=== PATIENT | male | born 1985 | race Caucasian/White ===

== ENCOUNTER 2017-12-16 14:27 | Emergency (ER) | payer SELFPAY ==
--- NOTE | 2017-12-16 15:10 | EDM.PDOCBH ---
<OfficerFausto - Last Filed: 12/16/17 15:08> ED HPI GENERAL MEDICAL PROBLEM - General Chief Complaint: Drug or Alcohol Abuse Stated Complaint: VOMITING, ALCHOL WITHDRAWAL Time Seen by Provider: 12/16/17 14:59 Source of Information: Reports: Patient, RN Notes Reviewed History Limitations: Reports: Intoxication - History of Present Illness INITIAL COMMENTS - FREE TEXT/NARRATIVE: 32-year-old gentleman presents to the emergency department today requesting treatment at an alcohol facility, he last drank this morning tends to drink whiskey or wine has been to the [facility] 12 times, at this time he states he feels ill but he is going through withdrawal symptoms has had poor oral intake for the last 4 days because of the alcohol consumption Generalized Pain Score (Numeric/FACES): 5 - Related Data Allergies Allergy/AdvReac Type Severity Reaction Status Date / Time No Known Allergies Allergy Verified 12/16/17 14:50 Home Meds: Home Meds NK [No Known Home Meds] 12/16/17 [History] Past Medical History Psychiatric History: Reports: Addiction Social & Family History - Tobacco Use Smoking Status *Q: Heavy Tobacco Smoker Years of Tobacco use: 15 Packs/Tins Daily: 1 - Caffeine Use Caffeine Use: Reports: Soda - Alcohol Use Number of Drinks Per Day: 10 - Recreational Drug Use Recreational Drug Use: No ED ROS GENERAL - Review of Systems Review Of Systems: See Below Constitutional: Reports: No Symptoms HEENT: Reports: No Symptoms Respiratory: Reports: No Symptoms Cardiovascular: Reports: No Symptoms GI/Abdominal: Reports: No Symptoms : Reports: No Symptoms Musculoskeletal: Reports: No Symptoms Skin: Reports: No Symptoms Neurological: Reports: No Symptoms Psychiatric: Reports: Cravings ED EXAM, BEHAVIORAL HEALTH - Physical Exam Exam: See Below Exam Limited By: Intoxication General Appearance: Alert, WD/WN, No Apparent Distress Respiratory/Chest: No Respiratory Distress, Lungs Clear, Normal Breath Sounds, No Accessory Muscle Use Cardiovascular: Regular Rate, Rhythm, No Murmur GI/Abdominal: Soft, Non-Tender COURSE, BEHAVIORAL HEALTH COMP - Course Vital Signs: Last Vital Signs Temp 97.2 F 12/17/17 03:42 Pulse 88 12/17/17 03:42 Resp 15 12/17/17 03:42 BP 122/78 12/17/17 03:42 Pulse Ox 98 12/17/17 03:42 Orders, Labs, Meds: Active Orders 24 hr Category Date Time Status Peripheral IV Care [RC] . DIRECTED Care 12/16/17 16:09 Active Peripheral IV Insertion Adult [OM.PC] Urgent Oth 12/16/17 16:09 Ordered Laboratory Tests 12/16/17 12/16/17 12/16/17 Range/Units 15:07 15:07 15:07 WBC 8.5 (4.5-11.0) K/uL RBC 5.17 (4.30-5.90) M/uL Hgb 17.2 H (12.0-15.0) g/dL Hct 47.3 (40.0-54.0) % MCV 92 (80-98) fL MCH 33 H (27-31) pg MCHC 36 (32-36) % Plt Count 221 (150-400) K/uL Neut % (Auto) 53 (36-66) % Lymph % (Auto) 36 (24-44) % Carter % (Auto) 10 H (2-6) % Eos % (Auto) 1 L (2-4) % Baso % (Auto) 0 (0-1) % Sodium 134 L (140-148) mmol/L Potassium 3.1 L (3.6-5.2) mmol/L Chloride 96 L (100-108) mmol/L Carbon Dioxide 20 L (21-32) mmol/L Anion Gap 21.1 H (5.0-14.0) mmol/L BUN 11 (7-18) mg/dL Creatinine 0.8 (0.8-1.3) mg/dL Est Cr Clr Drug Dosing 165.76 mL/min Estimated GFR (MDRD) > 60 (>60) Glucose 184 H (74-106) mg/dL Calcium 8.5 (8.5-10.1) mg/dL Total Bilirubin 0.6 (0.2-1.0) mg/dL AST 172 H (15-37) U/L ALT 94 H (12-78) U/L Alkaline Phosphatase 117 H (46-116) U/L Total Protein 6.7 (6.4-8.2) g/dL Albumin 3.7 (3.4-5.0) g/dL Globulin 3.0 (2.3-3.5) g/dL Albumin/Globulin Ratio 1.2 (1.2-2.2) Urine Opiates Screen (NEGATIVE) Ur Oxycodone Screen (NEGATIVE) Urine Methadone Screen (NEGATIVE) Ur Propoxyphene Screen (NEGATIVE) Ur Barbiturates Screen (NEGATIVE) Ur Tricyclics Screen (NEGATIVE) Ur Phencyclidine Scrn (NEGATIVE) Ur Amphetamine Screen (NEGATIVE) U Methamphetamines Scrn (NEGATIVE) Urine MDMA Screen (NEGATIVE) U Benzodiazepines Scrn (NEGATIVE) U Cocaine Metab Screen (NEGATIVE) U Marijuana (THC) Screen (NEGATIVE) Ethyl Alcohol 454 mg/dL 12/16/17 12/16/17 12/16/17 Range/Units 16:16 20:00 23:05 WBC (4.5-11.0) K/uL RBC (4.30-5.90) M/uL Hgb (12.0-15.0) g/dL Hct (40.0-54.0) % MCV (80-98) fL MCH (27-31) pg MCHC (32-36) % Plt Count (150-400) K/uL Neut % (Auto) (36-66) % Lymph % (Auto) (24-44) % Carter % (Auto) (2-6) % Eos % (Auto) (2-4) % Baso % (Auto) (0-1) % Sodium (140-148) mmol/L Potassium (3.6-5.2) mmol/L Chloride (100-108) mmol/L Carbon Dioxide (21-32) mmol/L Anion Gap (5.0-14.0) mmol/L BUN (7-18) mg/dL Creatinine (0.8-1.3) mg/dL Est Cr Clr Drug Dosing mL/min Estimated GFR (MDRD) (>60) Glucose (74-106) mg/dL Calcium (8.5-10.1) mg/dL Total Bilirubin (0.2-1.0) mg/dL AST (15-37) U/L ALT (12-78) U/L Alkaline Phosphatase (46-116) U/L Total Protein (6.4-8.2) g/dL Albumin (3.4-5.0) g/dL Globulin (2.3-3.5) g/dL Albumin/Globulin Ratio (1.2-2.2) Urine Opiates Screen Negative (NEGATIVE) Ur Oxycodone Screen Negative (NEGATIVE) Urine Methadone Screen Negative (NEGATIVE) Ur Propoxyphene Screen Negative (NEGATIVE) Ur Barbiturates Screen Negative (NEGATIVE) Ur Tricyclics Screen Negative (NEGATIVE) Ur Phencyclidine Scrn Negative (NEGATIVE) Ur Amphetamine Screen Negative (NEGATIVE) U Methamphetamines Scrn Negative (NEGATIVE) Urine MDMA Screen Negative (NEGATIVE) U Benzodiazepines Scrn Negative (NEGATIVE) U Cocaine Metab Screen Negative (NEGATIVE) U Marijuana (THC) Screen Negative (NEGATIVE) Ethyl Alcohol 433 429 mg/dL 12/17/17 12/17/17 Range/Units 01:10 03:05 WBC (4.5-11.0) K/uL RBC (4.30-5.90) M/uL Hgb (12.0-15.0) g/dL Hct (40.0-54.0) % MCV (80-98) fL MCH (27-31) pg MCHC (32-36) % Plt Count (150-400) K/uL Neut % (Auto) (36-66) % Lymph % (Auto) (24-44) % Carter % (Auto) (2-6) % Eos % (Auto) (2-4) % Baso % (Auto) (0-1) % Sodium (140-148) mmol/L Potassium (3.6-5.2) mmol/L Chloride (100-108) mmol/L Carbon Dioxide (21-32) mmol/L Anion Gap (5.0-14.0) mmol/L BUN (7-18) mg/dL Creatinine (0.8-1.3) mg/dL Est Cr Clr Drug Dosing mL/min Estimated GFR (MDRD) (>60) Glucose (74-106) mg/dL Calcium (8.5-10.1) mg/dL Total Bilirubin (0.2-1.0) mg/dL AST (15-37) U/L ALT (12-78) U/L Alkaline Phosphatase (46-116) U/L Total Protein (6.4-8.2) g/dL Albumin (3.4-5.0) g/dL Globulin (2.3-3.5) g/dL Albumin/Globulin Ratio (1.2-2.2) Urine Opiates Screen (NEGATIVE) Ur Oxycodone Screen (NEGATIVE) Urine Methadone Screen (NEGATIVE) Ur Propoxyphene Screen (NEGATIVE) Ur Barbiturates Screen (NEGATIVE) Ur Tricyclics Screen (NEGATIVE) Ur Phencyclidine Scrn (NEGATIVE) Ur Amphetamine Screen (NEGATIVE) U Methamphetamines Scrn (NEGATIVE) Urine MDMA Screen (NEGATIVE) U Benzodiazepines Scrn (NEGATIVE) U Cocaine Metab Screen (NEGATIVE) U Marijuana (THC) Screen (NEGATIVE) Ethyl Alcohol 413 358 mg/dL Medications Discontinued Medications Generic Name Dose Route Start Last Admin Trade Name Freq PRN Reason Stop Dose Admin Multivitamins/Minerals 10 ml/ 1,016.2 mls @ 500 mls/hr 12/16/17 16:09 Thiamine HCl 200 mg/ Folic IV 12/16/17 18:10 Acid 1 mg/ Magnesium Sulfate 2 ONETIME ONE gm/ Dextrose/Lactated Ringer' s Multivitamins/Minerals 10 ml/ 1,016.2 mls @ 500 mls/hr 12/16/17 16:30 16:34 Thiamine HCl 200 mg/ Folic IV 12/16/17 18:31 500 mls/hr Acid 1 mg/ Magnesium Sulfate 2 ONETIME ONE Administration gm/ Dextrose/Lactated Ringer' s Potassium Chloride 20 meq/ 100 mls @ 50 mls/hr 12/16/17 16:32 12/16/17 18:45 Premix IV 12/16/17 18:31 50 mls/hr ONETIME ONE Administration Sodium Chloride 1,000 mls @ 500 mls/hr 12/16/17 23:45 12/16/17 23:38 Normal Saline IV 500 mls/hr ASDIRECTED FELIPE Administration Sodium Chloride 1,000 mls @ 500 mls/hr 12/17/17 01:45 12/17/17 01:40 Normal Saline IV 500 mls/hr ASDIRECTED FELIPE Administration Lorazepam 1 mg 12/16/17 15:08 12/16/17 15:13 Ativan IM 12/16/17 15:09 1 mg ONETIME ONE Administration Potassium Chloride 40 meq 12/16/17 16:32 12/16/17 17:38 Klor-Con M20 PO 12/16/17 16:33 40 meq ONETIME ONE Administration Sodium Chloride 10 ml 12/16/17 16:09 12/16/17 17:39 Saline Flush FLUSH 10 ml ASDIRECTED PRN Administration Keep Vein Open Departure - Departure Disposition: DC/Tfer to Other 70 Clinical Impression: Alcohol abuse Alcohol intoxication Qualifiers: Complication of substance-induced condition: uncomplicated Qualified Code(s): F10.920 - Alcohol use, unspecified with intoxication, uncomplicated - Discharge Information Instructions: Alcohol Use Disorder, Alcohol Intoxication, [id number] Referrals: PCP,None [Primary Care Provider] - Forms: ED Department Discharge Care Plan Goals: Admit to [place] for detox and treatment. <Raymond Rizvi - Last Filed: 12/17/17 06:12> COURSE, BEHAVIORAL HEALTH COMP - Course Re-Assessment/Re-Exam: Care turned over from Officer. After a banana bag and fluids at 8:30 PM his alcohol level was still 0.433. He admits that his intake prior to coming to the hospital was "rather excessive". His levels were probably rising when he arrived. We'll check it again in 2 hours. After 8 hours and a slowly falling level, patient was transported to [place] Departure - Departure Time of Disposition: 04:32 Condition: Fair
[2017-12-16] MEDS: LORazepam 2 MG/ML MDV IM ONE (15:13)
[2017-12-16] MEDS ORDERED: MVI, Adult with Vitamin K 10 ML, Thiamine 200 MG, Folic Acid 1 MG, Magnesium Sulfate 2 ... IV ONE ×5 (16:09)
[2017-12-16] MEDS: MVI, Adult with Vitamin K 10 ML, Thiamine 200 MG, Folic Acid 1 MG, Magnesium Sulfate 2 ... IV ONE ×5 (16:34)
[2017-12-16] MEDS: Potassium Chloride 20 MEQ Tab.ER PO ONE (17:38)
[2017-12-16] MEDS: Sodium Chloride 0.9% 10 ML Syringe FLUSH PRN (17:39)
[2017-12-16] MEDS: Potassium Chloride 20 MEQ in Premix Bag 1 BAG IV ONE (18:45)
[2017-12-16] MEDS: Sodium Chloride 0.9% 1,000 ML IV SCH (23:38)
[2017-12-17] MEDS: Sodium Chloride 0.9% 1,000 ML IV SCH (01:40)
== END 2017-12-17 04:34 | disposition other institution (70) ==
LOC: JP.ED 14:27
DX: F10.120 Alcohol abuse with intoxication, uncomplicated (principal); F17.210 Nicotine dependence, cigarettes, uncomplicated
CPT/HCPCS: 36415; 80053; 80305; 85025; 96360; 96361; 96372; 99284-25; A9270-GY; G0480; J2060; J3411; J3475; J3480; J3490; J7040; J7042; J7050

== ENCOUNTER 2018-04-20 15:57 | Emergency (ER) | payer MEDICARE, OTHER ==
[2018-04-20] MEDS ORDERED: LORazepam 1 MG Tab PO ONE (18:03)
--- NOTE | 2018-04-20 18:13 | EDM.PDOCBH ---
ED HPI GENERAL MEDICAL PROBLEM - General Chief Complaint: Drug or Alcohol Abuse Stated Complaint: EVAL/DETOX Time Seen by Provider: 04/20/18 18:00 Source of Information: Reports: Patient, RN History Limitations: Reports: Other (poor historian) - History of Present Illness INITIAL COMMENTS - FREE TEXT/NARRATIVE: 33 yo male presents requesting clearance before admission to [facility]. Has not drank in 3 days. Is having some tremors. Is unable to tell me how much he was drinking before quitting. Does not have a primary care provider and does not take any daily meds. Not sleeping well. 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) (none) - Related Data Allergies Allergy/AdvReac Type Severity Reaction Status Date / Time No Known Allergies Allergy Verified 12/16/17 14:50 Home Meds: Home Meds NK [No Known Home Meds] 12/16/17 [History] Past Medical History Psychiatric History: Reports: Addiction Social & Family History - Caffeine Use Caffeine Use: Reports: Soda ED ROS GENERAL - Review of Systems Review Of Systems: Unable To Obtain HEENT: Reports: No Symptoms Respiratory: Reports: No Symptoms Cardiovascular: Reports: No Symptoms GI/Abdominal: Reports: No Symptoms : Reports: No Symptoms Musculoskeletal: Reports: No Symptoms Skin: Reports: No Symptoms Neurological: Reports: Tremors Psychiatric: Reports: Other (insomnia) ED EXAM, BEHAVIORAL HEALTH - Physical Exam Exam: See Below Exam Limited By: No Limitations General Appearance: Alert, WD/WN, Mild Distress Eye Exam: Bilateral Eye: Normal Inspection Ears: Normal External Exam, Normal Canal, Hearing Grossly Normal, Normal TMs Nose: Normal Inspection, Normal Mucosa, No Blood Throat/Mouth: Normal Inspection, Normal Lips, Normal Oropharynx, Normal Voice, No Airway Compromise Head: Atraumatic, Normocephalic Neck: Normal Inspection, Supple, Non-Tender Respiratory/Chest: No Respiratory Distress, Lungs Clear, Normal Breath Sounds, No Accessory Muscle Use Cardiovascular: Regular Rate, Rhythm, No Edema GI/Abdominal: Normal Bowel Sounds, Soft, Non-Tender, No Distention Back Exam: Normal Inspection. No: CVA Tenderness (R), CVA Tenderness (L) Extremities: Normal Inspection, Normal Range of Motion Neurological: Alert, Normal Mood/Affect, CN II-XII Intact, Normal Cognition, No Motor/Sensory Deficits, Oriented x 3, Tremor Psychiatric: Alert, Normal Affect, Normal Cognition, Normal Mood Skin Exam: Warm, Dry, Intact, Normal color, No rash COURSE, BEHAVIORAL HEALTH COMP - Course Vital Signs: Last Vital Signs Temp 37.6 C 04/20/18 17:50 Pulse 123 H 04/20/18 17:50 Resp 16 04/20/18 17:50 BP 159/97 H 04/20/18 17:50 Pulse Ox 98 04/20/18 17:50 Orders, Labs, Meds: Laboratory Tests 04/20/18 Range/Units 18:03 Ethyl Alcohol < 3 mg/dL Medications Discontinued Medications Generic Name Dose Route Start Last Admin Trade Name Sara PRN Reason Stop Dose Admin Lorazepam 2 mg 04/20/18 18:03 04/20/18 18:30 Ativan PO 04/20/18 18:04 2 mg ONETIME ONE Administration Medical Clearance: 04/20/18 19:10 Medical stable to finish his detox at [facility]. Does have withdrawal sx's on presentation, but is improving after oral Ativan. Has not yet finished detox process based on today's clinical findings. Departure - Departure Time of Disposition: 19:11 Disposition: DC/Tfer to Other 70 Condition: Fair Clinical Impression: Alcohol withdrawal syndrome Qualifiers: Complication of substance-induced condition: uncomplicated Qualified Code(s): F10.230 - Alcohol dependence with withdrawal, uncomplicated - Discharge Information Referrals: PCP,None [Primary Care Provider] - Forms: ED Department Discharge
== END 2018-04-20 19:27 | disposition other institution (70) ==
LOC: JP.ED 15:57
DX: F10.230 Alcohol dependence with withdrawal, uncomplicated (principal)
CPT/HCPCS: 36415; 99285; A9270; G0480

== ENCOUNTER 2021-07-03 04:01 | Emergency (ER) | payer MEDICARE ==
--- NOTE | 2021-07-03 04:29 | EDM.PDOCBH ---
ED HPI GENERAL MEDICAL PROBLEM - General Chief Complaint: Drug or Alcohol Abuse Stated Complaint: [facility] Time Seen by Provider: 07/03/21 04:10 Source of Information: Reports: Patient, Family History Limitations: Reports: Intoxication - History of Present Illness INITIAL COMMENTS - FREE TEXT/NARRATIVE: 36-year-old male chronic alcoholic was been to [facility] for detox many times over the past 8 years, presents intoxicated looking for detox. No physical complaints at this time. He has been drinking daily for an unknown amount of time. He has been falling and has some abrasions on his right knee and a few scattered bruises but is otherwise fairly stable. No complaints of shortness of breath or pain. He is quite intoxicated at this time. He is asking for food. Onset: Unknown/Unsure Associated Symptoms: Denies: Chest Pain, Shortness of Breath - Related Data Allergies Allergy/AdvReac Type Severity Reaction Status Date / Time No Known Allergies Allergy Verified 07/03/21 04:16 Home Meds: Home Meds NK [No Known Home Meds] 12/16/17 [History] Past Medical History Musculoskeletal History: Reports: Fracture Psychiatric History: Reports: Addiction - Infectious Disease History Infectious Disease History: Reports: None Social & Family History - Caffeine Use Caffeine Use: Reports: Soda ED ROS GENERAL - Review of Systems Review Of Systems: See Below Constitutional: Reports: Malaise. Denies: Fever, Chills HEENT: Denies: Vision Change Respiratory: Denies: Shortness of Breath Cardiovascular: Denies: Chest Pain GI/Abdominal: Denies: Nausea, Vomiting : Reports: No Symptoms Skin: Reports: Bruising (Scattered bruises, an abrasion on his right knee) Neurological: Denies: Headache Psychiatric: Reports: Other (Very intoxicated) ED EXAM, BEHAVIORAL HEALTH - Physical Exam Exam: See Below Exam Limited By: Intoxication General Appearance: Alert, No Apparent Distress Eye Exam: Bilateral Eye: EOMI Head: Atraumatic Respiratory/Chest: No Respiratory Distress, Lungs Clear Cardiovascular: Regular Rate, Rhythm GI/Abdominal: Normal Bowel Sounds, Soft, Non-Tender Neurological: Alert, Disoriented to Time. No: Disoriented to Person, Disoriented to Place Psychiatric: Depressed Mood. No: Incoherent, Tearful Skin Exam: Warm, Dry, Other (Superficial abrasion, healing of the right knee. Scattered bruises on his arms) COURSE, BEHAVIORAL HEALTH COMP - Course Vital Signs: Last Vital Signs Temp 97.7 F 07/03/21 04:28 Pulse 101 H 07/03/21 04:28 Resp 18 07/03/21 04:28 BP 141/87 H 07/03/21 04:28 Pulse Ox 95 07/03/21 04:28 Orders, Labs, Meds: Active Orders 24 hr Category Date Time Status DRUG SCREEN, URINE [URCHEM] Stat Lab 07/03/21 04:28 Ordered Laboratory Tests 07/03/21 07/03/21 Range/Units 04:40 05:05 Ethyl Alcohol 432 mg/dL SARS CoV-2 RNA Rapid FERN Negative Re-Assessment/Re-Exam: Our local detox facility does have a male bed available, and EtOH, urine drug screen and Covid test was obtained. Patient refused to give a urine, and after having something to eat he eloped. Blood alcohol returned 0.432 Covid was negative, these results were available after the patient had eloped Departure - Departure Time of Disposition: 05:25 Disposition: Eloped 07 Clinical Impression: Alcohol abuse - Discharge Information Referrals: PCP,None [Primary Care Provider] - Forms: ED Department Discharge Care Plan Goals: Unable to give discharge instructions, patient eloped prior to finishing his evaluation for detox. Sepsis Event Note (ED) - Focused Exam Vital Signs: Vital Signs Temp Pulse Resp BP Pulse Ox 07/03/21 04:28 97.7 F 101 H 18 141/87 H 95 07/03/21 04:12 97.7 F 101 H 18 141/87 H 95 - My Orders Last 24 Hours: My Active Orders 07/03/21 04:28 DRUG SCREEN, URINE [URCHEM] Stat - Assessment/Plan Last 24 Hours: My Active Orders 07/03/21 04:28 DRUG SCREEN, URINE [URCHEM] Stat
== END 2021-07-03 05:25 | disposition left against medical advice (07) ==
LOC: JP.ED 04:01
DX: F10.129 Alcohol abuse with intoxication, unspecified (principal); Z20.822 Contact with and (suspected) exposure to COVID-19
CPT/HCPCS: 36415; 80307; 99284; U0002

== ENCOUNTER 2021-07-03 05:52 | Emergency (ER) | payer MEDICARE ==
--- NOTE | 2021-07-03 06:26 | EDM.PDOCBH ---
<Robbie Anand G - Last Filed: 07/03/21 11:31> ED HPI GENERAL MEDICAL PROBLEM - General Chief Complaint: Drug or Alcohol Abuse Stated Complaint: [place] Time Seen by Provider: 07/03/21 06:15 - Related Data Allergies Allergy/AdvReac Type Severity Reaction Status Date / Time No Known Allergies Allergy Verified 07/03/21 06:11 Home Meds: Home Meds NK [No Known Home Meds] 12/16/17 [History] Departure - Departure Time of Disposition: 11:31 Disposition: DC/Tfer to Other 70 Condition: Fair Clinical Impression: Alcohol abuse Alcohol intoxication Qualifiers: Complication of substance-induced condition: uncomplicated Qualified Code(s): F10.920 - Alcohol use, unspecified with intoxication, uncomplicated - Discharge Information *PRESCRIPTION DRUG MONITORING PROGRAM REVIEWED*: Not Applicable *COPY OF PRESCRIPTION DRUG MONITORING REPORT IN PATIENT NASEEM: Not Applicable Referrals: PCP,None [Primary Care Provider] - Forms: ED Department Discharge <Raymond Rizvi - Last Filed: 07/03/21 17:12> ED HPI GENERAL MEDICAL PROBLEM - General Source of Information: Reports: Patient History Limitations: Reports: Intoxication - History of Present Illness INITIAL COMMENTS - FREE TEXT/NARRATIVE: 36-year-old male returns wanting detox. He eloped less than 1 hour ago, apparen tly because he "wanted to have a cigarette". He was able to give us a urine this visit. Onset: Unknown/Unsure Associated Symptoms: Reports: No Other Symptoms Past Medical History Musculoskeletal History: Reports: Fracture Psychiatric History: Reports: Addiction - Infectious Disease History Infectious Disease History: Reports: None Social & Family History - Tobacco Use Tobacco Use Status *Q: Current Every Day Tobacco User Years of Tobacco use: 10 Packs/Tins Daily: 2 - Caffeine Use Caffeine Use: Reports: Soda - Recreational Drug Use Recreational Drug Use: No ED ROS GENERAL - Review of Systems Review Of Systems: See Below Constitutional: Denies: Fever, Chills Respiratory: Denies: Shortness of Breath GI/Abdominal: Denies: Nausea, Vomiting Skin: Reports: Bruising Free Text/Narrative/Comment: No change from review of systems obtained less than 1 hour ago ED EXAM, BEHAVIORAL HEALTH - Physical Exam Exam: See Below Exam Limited By: Intoxication General Appearance: No Apparent Distress Head: Atraumatic Respiratory/Chest: No Respiratory Distress Extremities: Other (Abrasion on his right knee, few scattered bruises on his extremities) Neurological: Alert, Disoriented to Time Psychiatric: No: Suicidal Plan, Threatening Behavior COURSE, BEHAVIORAL HEALTH COMP - Course Vital Signs: Last Vital Signs Temp 98.0 F 07/03/21 10:55 Pulse 96 07/03/21 10:55 Resp 16 07/03/21 06:14 BP 123/73 07/03/21 10:55 Pulse Ox 91 L 07/03/21 10:55 Orders, Labs, Meds: Laboratory Tests 07/03/21 07/03/21 Range/Units 06:24 10:32 Urine Opiates Screen Negative (NEGATIVE) Ur Oxycodone Screen Negative (NEGATIVE) Urine Methadone Screen Negative (NEGATIVE) Ur Propoxyphene Screen Negative (NEGATIVE) Ur Barbiturates Screen Negative (NEGATIVE) Ur Tricyclics Screen Negative (NEGATIVE) Ur Phencyclidine Scrn Negative (NEGATIVE) Ur Amphetamine Screen Negative (NEGATIVE) U Methamphetamines Scrn Negative (NEGATIVE) Urine MDMA Screen Negative (NEGATIVE) U Benzodiazepines Scrn Presumptive positive H (NEGATIVE) U Cocaine Metab Screen Negative (NEGATIVE) U Marijuana (THC) Screen Negative (NEGATIVE) Ethyl Alcohol 293 mg/dL Re-Assessment/Re-Exam: Urine was obtained for urine drug screen. EtOH was not repeated, and it was 0.432 1-hour ago. Care was turned over to Dr. Anand pending drug screen result and disposition Sepsis Event Note (ED) - Evaluation Sepsis Screening Result: No Definite Risk - Focused Exam Vital Signs: Vital Signs Temp Pulse Resp BP Pulse Ox 07/03/21 10:55 98.0 F 96 123/73 91 L 07/03/21 06:14 97.5 F 94 16 133/91 H 94 L 07/03/21 06:03 97.5 F 94 16 133/91 H 94 L
== END 2021-07-03 14:40 | disposition other institution (70) ==
LOC: JP.ED 05:52
DX: F10.129 Alcohol abuse with intoxication, unspecified (principal); S80.211A Abrasion, right knee, initial encounter; Z72.0 Tobacco use; Y90.8 Blood alcohol level of 240 mg/100 ml or more; X58.XXXA Exposure to other specified factors, initial encounter
CPT/HCPCS: 36415; 80305-QW; 80307; 99284

== ENCOUNTER 2022-05-30 13:50 | Emergency (ER) | payer MEDICAID, MEDICARE | END 2022-05-30 15:23 | disposition left against medical advice (07) | LOC: JP.ED 13:50 | DX: F10.920 Alcohol use, unspecified with intoxication, uncomplicated (principal); R03.0 Elevated blood-pressure reading, without diagnosis of hypertension; E66.9 Obesity, unspecified; Z72.0 Tobacco use; Z20.822 Contact with and (suspected) exposure to COVID-19; Z79.899 Other long term (current) drug therapy | CPT/HCPCS: 36415; 80307; 99284; U0002; 99282 ==

== ENCOUNTER 2022-05-31 01:20 | Emergency (ER) | payer MEDICARE ==
[2022-05-31 02:27] LABS: ESTIMATED GFR 129 mL/min (>60)
== END 2022-05-31 12:00 | disposition left against medical advice (07) ==
LOC: JP.ED 01:20
DX: F10.120 Alcohol abuse with intoxication, uncomplicated (principal); F17.200 Nicotine dependence, unspecified, uncomplicated; E66.9 Obesity, unspecified; Z68.33 Body mass index [BMI] 33.0-33.9, adult; Y90.8 Blood alcohol level of 240 mg/100 ml or more
CPT/HCPCS: 36415; 80053; 80305-QW; 80307; 81001; 85027; 99281; 99284